=== PATIENT | male | born 1960 | race Caucasian/White ===

== ENCOUNTER 2019-06-12 10:04 | Emergency (ER) | payer BC ==
[2019-06-12] MEDS ORDERED: Lidocaine 1% with EPINEPHrine 1:100,000 50 ML MDV INFILT ONE (10:25)
[2019-06-12] MEDS ORDERED: Bacitracin Oint 1 GM U/D Packet TOP ONE (10:28)
[2019-06-12] MEDS ORDERED: Diphtheria,Pertussis(Acell),Tetanus Vaccine 0.5 ML SDV IM ONE (10:53)
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
== END 2019-06-12 11:17 | disposition home or self-care (01) ==
LOC: JP.ED 10:04
DX: S01.81XA Laceration without foreign body of other part of head, initial encounter (principal); Z23 Encounter for immunization; V19.9XXA Pedal cyclist (driver) (passenger) injured in unspecified traffic accident, initial encounter
CPT/HCPCS: 12052; 90471; 90715; 99283-25

== ENCOUNTER 2025-06-14 17:05 | Emergency (ER) | payer BC ==
[2025-06-14 17:17] LABS: BASOPHILS ABSOLUTE AUTO 0.03 K/uL (0.00-0.10); BASOPHILS PERCENT AUTO 0.5 % (0.1-1.3); EOSINOPHILS PERCENT AUTO 0.4 % (0.0-5.4); IMMATURE GRAN PERCENT AUTO 0.4 % (0.0-0.7); LYMPHOCYTES ABSOLUTE AUTO 0.75 K/uL (0.8-3.3); LYMPHOCYTES PERCENT AUTO 13.6 % (11.4-47.7); MONOCYTES ABSOLUTE AUTO 0.69 K/uL (0.20-0.90); MONOCYTES PERCENT AUTO 12.5 % (3.3-12.6); NEUTROPHILS ABSOLUTE AUTO 4.00 K/uL (1.0-7.6); NEUTROPHILS PERCENT AUTO 72.6 % (40.0-78.1); PLATELET COUNT,PLT 152 K/uL (130-375); RED BLOOD CELL COUNT 3.86 M/uL (4.14-5.76); WHITE BLOOD CELL COUNT,WBC 5.5 K/uL (3.2-11.0)
[2025-06-14 17:18] LABS: O2 SATURATION VENOUS 44.2; OXYHEMOGLOBIN 43.0 %; PCO2 VENOUS 48.1 mm/Hg; TOTAL HEMOGLOBIN 14.4 g/dL (13.5-18.0)
[2025-06-14 17:20] LABS: BASE EXCESS VENOUS 1.6 mm/L; BICARBONATE,VENOUS 27.1 mmol/L; EOSINOPHILS ABSOLUTE AUTO 0.02 K/uL (0.00-0.40); IMMATURE GRAN ABSOLUTE AUTO 0.02 K/uL (0.00-0.23); PH,VENOUS 7.369 (7.350-7.450); PO2 VENOUS 29.7 mm/Hg
[2025-06-14 17:40] LABS: INR 1.0; PTT,PARTIAL THROMBOPLSTIN TIME 22.0 sec (21.8-27.3)
[2025-06-14 17:45] LABS: A/G RATIO 1.0 (1.2-2.2); ALANINE AMINOTRANSFERASE,ALT 33 U/L (12-78); ASPARTATE AMNIOTRANSFERASE,AST 38 U/L (15-37); BILIRUBIN TOTAL 0.5 mg/dL (0.2-1.0); BLOOD UREA NITROGEN,BUN 11 mg/dL (7-18); CARBON DIOXIDE,CO2 28 mmol/L (21-32); CHLORIDE,CL 100 mmol/L (100-108); CREATININE 1.0 mg/dL (0.8-1.3); EST CRCL DRUG DOSING (CG) 75.61 mL/min; ESTIMATED GFR 85 mL/min (>60); GLUCOSE RANDOM 105 mg/dL (74-106); POTASSIUM,K 4.2 mmol/L (3.6-5.2); PROTEIN TOTAL,TP 7.4 g/dL (6.4-8.2); SODIUM,NA 137 mmol/L (140-148)
== END 2025-06-14 18:31 | disposition home or self-care (01) ==
LOC: JP.ED 17:05
DX: R56.9 Unspecified convulsions (principal); R60.9 Edema, unspecified; R07.89 Other chest pain; W07.XXXA Fall from chair, initial encounter; Y99.0 Civilian activity done for income or pay
CPT/HCPCS: 36415; 70450; 70450-26; 80053; 82803; 85025; 85610; 85730; 93005; 93010; 99284; 99285